=== PATIENT | male | born 1965 | race American Indian/Alaskan Native ===

== ENCOUNTER 2017-03-30 17:31 | Emergency (ER) | payer SELFPAY ==
[2017-03-30 18:14] LABS: Basophils % (Auto) 0.7 % (0.0-1.8); Eosinophils % (Auto) 3.3 % (0.0-4.3); Hematocrit 42.5 % (35.5-45.6); Hemoglobin 14.3 gm/dl (11.8-15.2); Mean Corpuscular HGB Conc 34 % (32-34); Mean Corpuscular Hemoglobin 34 pg (28-32); Mean Corpuscular Volume 100 fl (84-94); Platelet Count 266 K/mm3 (140-440); Red Blood Count 4.26 M/mm3 (3.65-5.03); Red Cell Distribution Width 14.4 % (13.2-15.2); White Blood Count 4.6 K/mm3 (4.5-11.0)
[2017-03-30 18:30] LABS: Anion Gap 16 mmol/L; Blood Urea Nitrogen 14 mg/dL (9-20); Calcium 8.5 mg/dL (8.4-10.2); Carbon Dioxide 25 mmol/L (22-30); Chloride 101.9 mmol/L (98-107); Glucose 96 mg/dL (75-100); Potassium 3.6 mmol/L (3.6-5.0); Sodium 139 mmol/L (137-145)
--- NOTE | 2017-03-31 09:04 | Emergency Department Report ---
ED General Adult HPI - General Chief complaint: Chest Pain Stated complaint: SYNCOPE/CHEST PAIN Time Seen by Provider: 03/31/17 08:53 Source: patient Mode of arrival: Ambulatory Limitations: No Limitations - History of Present Illness Initial comments: 51-year-old male presents to the emergency department complaining of chest pain and syncope. Patient states that one day ago he was having intermittent sharp pain in his chest. Yesterday afternoon, he stood up from a seated position and states everything went black. He states he woke up on the floor with numbness in his left arm. He also noted swelling in his left leg. He denies pain. He denies weakness in any of his extremities. There are no other complaints. -: Sudden, days(s) (1) Location: chest, left, upper extremity, lower extremity Radiation: non-radiation Severity scale (0 -10): 5 Quality: sharp Consistency: now resolved Improves with: none Worsens with: none Associated Symptoms: denies other symptoms Treatments Prior to Arrival: none - Related Data Previous Rx's Medication Instructions Recorded Last Taken Type Prednisone [predniSONE 5 mg (6-Day 5 mg PO .TAPER #1 tab.ds.pk 03/31/17 Unknown Rx Pack, 21 Tabs)] Allergies Allergy/AdvReac Type Severity Reaction Status Date / Time No Known Allergies Allergy Unverified 03/30/17 17:43 ED Review of Systems ROS: Stated complaint: SYNCOPE/CHEST PAIN Other details as noted in HPI Comment: All other systems reviewed and negative Cardiovascular: chest pain, edema, syncope Neurological: numbness ED Past Medical Hx - Past Medical History Previous Medical History?: No - Surgical History Past Surgical History?: Yes Additional Surgical History: R knee - Family History Family history: no significant - Social History Smoking Status: Current Every Day Smoker Substance Use Type: Alcohol - Medications Home Medications: Home Medications Medication Instructions Recorded Confirmed Last Taken Type Prednisone [predniSONE 5 mg (6-Day 5 mg PO .TAPER #1 tab.ds.pk 03/31/17 Unknown Rx Pack, 21 Tabs)] ED Physical Exam - General Limitations: No Limitations General appearance: alert, in no apparent distress - Head Head exam: Present: atraumatic, normocephalic - Eye Eye exam: Present: normal appearance, PERRL, EOMI - ENT ENT exam: Present: normal exam, normal orophraynx, mucous membranes moist - Neck Neck exam: Present: normal inspection, full ROM. Absent: tenderness - Respiratory Respiratory exam: Present: normal lung sounds bilaterally. Absent: respiratory distress - Cardiovascular Cardiovascular Exam: Present: regular rate, normal rhythm, normal heart sounds - GI/Abdominal GI/Abdominal exam: Present: soft, normal bowel sounds. Absent: distended, tenderness - Extremities Exam Extremities exam: Present: full ROM, other (edema noted to LLE without tenderness or erythema). Absent: tenderness - Back Exam Back exam: Present: normal inspection, full ROM. Absent: tenderness - Neurological Exam Neurological exam: Present: alert, oriented X3. Absent: motor sensory deficit - Skin Skin exam: Present: warm, dry, intact ED Course Vital Signs 03/30/17 03/31/17 03/31/17 17:44 05:21 10:04 Temperature 98.8 F 98.0 F Pulse Rate 80 68 69 Respiratory 16 20 16 Rate Blood Pressure 114/73 133/90 Blood Pressure 120/88 [Right] O2 Sat by Pulse 99 98 98 Oximetry 03/31/17 10:05 Temperature Pulse Rate Respiratory 16 Rate Blood Pressure Blood Pressure [Right] O2 Sat by Pulse 100 Oximetry ED Medical Decision Making - Lab Data Result diagrams: 03/30/17 17:56 03/30/17 17:56 - EKG Data -: EKG Interpreted by In EKG shows normal: sinus rhythm, axis, intervals, QRS complexes, ST-T waves Rate: normal - EKG Data When compared to previous EKG there are: previous EKG unavailable Interpretation: normal EKG - Radiology Data Radiology results: report reviewed CT of the head shows no acute intracranial abnormality. CT of the cervical spines shows spondylolysis without acute injury. - Medical Decision Making Lab and imaging results reviewed and discussed with the patient. Doppler ultrasound of the left lower history reveals a superficial venous thrombus in a calf vein. No indication for treatment at this time for this thrombosis. Patient is instructed to return to the emergency department in 1 week for repeat ultrasound of the leg. Patient will be discharged home at this time on steroids for cervical radiculopathy. - Differential Diagnosis syncope, atypical chest pain, DVT/PE, cervical radiculopathy, stroke Critical care attestation.: If time is entered above; I have spent that time in minutes in the direct care of this critically ill patient, excluding procedure time. ED Disposition Clinical Impression: Orthostatic syncope, Cervical radiculopathy Disposition: TO HOME OR SELFCARE Is pt being admited?: No Condition: Stable Instructions: Syncope (ED), Cervical Radiculopathy (ED) Additional Instructions: Return to the emergency department in one week for repeat ultrasound of your leg. Prescriptions: Prednisone [predniSONE 5 mg (6-Day Pack, 21 Tabs)] 5 mg PO .TAPER #1 tab.ds.pk Referrals: PRIMARY CARE, [Primary Care Provider] - 3-5 Days Time of Disposition: 10:44
[2017-03-31 10:04] VITALS: BP 120/88
--- NOTE | 2017-03-31 10:07 | Cat Scan Report ---
CT HEAD WITHOUT CONTRAST: HISTORY: Syncope. Serial contiguous axial images were obtained through the cranium. Intravenous contrast material was not administered. The ventricles are normal in size and appearance. There is no mass effect or midline shift. No areas of abnormally increased or decreased attenuation are seen. No mass lesion is seen. The mastoid air cells and visualized portions of the sinuses are normal. IMPRESSION: Cranial CT scan within normal limits.
--- NOTE | 2017-03-31 10:07 | Cat Scan Report ---
CT SCAN OF THE CERVICAL SPINE: HISTORY: Left arm numbness, neck pain. TECHNIQUE: Contiguous 1.25 mm axial images of the cervical spine were obtained. Sagittal and coronal reformatted images. FINDINGS: There is normal height and alignment of the cervical vertebral bodies. No evidence for fracture, subluxation or bone lesion. At C3-4, there is moderate to severe posterior and bilateral uncovertebral spurring. Borderline central canal narrowing measuring 8-9 mm in AP dimension. Bilateral neural foraminal narrowing is estimated at 75%. At C5-6: Moderate right posterior and right uncovertebral spurring is identified resulting in high-grade right neural foraminal narrowing estimated at 75%. The remaining levels demonstrate mild degenerative findings. IMPRESSION: No acute injury is appreciated. Moderate to severe cervical spondylosis as outlined above.
--- NOTE | 2017-04-01 07:50 | Vascular Lab Report ---
Left Lower Extremity Venous Duplex Study: Reason for Exam: Swelling of the left lower extremity. Comments on the Right: A limited duplex study was done of the proximal veins of the right lower extremity. All veins visualized are freely compressible without evidence of internal echogenicity. Flow is spontaneous and phasic throughout. No evidence of acute or chronic thrombus is seen in any of the vessels visualized. Comments on the Left: All deep veins visualized are freely compressible without evidence of internal echogenicity. Flow is spontaneous and phasic throughout. No evidence of acute or chronic thrombus is seen in any of the vessels visualized. Superficial thrombophlebitis is noted in the lower portion of the greater saphenous vein Impression: No evidence of acute or chronic deep venous thrombosis in the left lower extremity. Superficial thrombophlebitis in the left lower extremity
== END 2017-03-31 10:45 | disposition home or self-care (01) ==
LOC: ED 17:31
DX: R55 Syncope and collapse (principal); M54.12 Radiculopathy, cervical region; F17.200 Nicotine dependence, unspecified, uncomplicated
CPT/HCPCS: 36415; 70450; 72125; 80048; 84484; 85025; 93005; 93010

== ENCOUNTER 2017-04-07 04:02 | Emergency (ER) | payer SELFPAY ==
[2017-04-07 05:07] VITALS: BP 129/87
--- NOTE | 2017-04-07 08:22 | Emergency Department Report ---
ED Lower Extremity HPI - General Chief Complaint: Extremity Problem,Nontraumatic Stated Complaint: FOLLOW UP Time Seen by Provider: 04/07/17 08:07 Source: patient Mode of arrival: Ambulatory Limitations: No Limitations - History of Present Illness Initial Comments: This is a 51-year-old male that presents to the ED for a repeat of ultrasound to the left lower leg. Patient stated he was here on and was seen by ED provider that was diagnosed with superficial venous thrombosis in the left calf vein. Patient was referred to return in 1 week to repeat ultrasound. Patient stated he is feeling much better since last week. Patient that he is only here today just to repeat ultrasound. Patient denies any calf tenderness, calf pain, fever, chills, short of breath, wheezing, hemoptysis, headache, chest pain. Denies any recent travels, recent hospitalization, or long car rides. Denies any allergies. Denies past medical history. MD Complaint: other (superficial venous thrombosis left lower extremity) -: Gradual, week(s) (1) Severity scale (0 -10): 0 Associated Symptoms: ambulatory. denies: snap/pop sensation, swelling, numbness , tingling, unable to bear weight, able to partially bear weight - Related Data Previous Rx's Medication Instructions Recorded Last Taken Type Prednisone [predniSONE 5 mg (6-Day 5 mg PO .TAPER #1 tab.ds.pk 03/31/17 Unknown Rx Pack, 21 Tabs)] Allergies Allergy/AdvReac Type Severity Reaction Status Date / Time No Known Allergies Allergy Unverified 03/30/17 17:43 ED Review of Systems ROS: Stated complaint: FOLLOW UP Other details as noted in HPI Constitutional: denies: chills, fever Eyes: denies: eye pain, eye discharge, vision change ENT: denies: ear pain, throat pain Respiratory: denies: cough, shortness of breath, wheezing Cardiovascular: denies: chest pain, palpitations Endocrine: no symptoms reported Gastrointestinal: denies: abdominal pain, nausea, diarrhea Genitourinary: denies: urgency, dysuria Musculoskeletal: denies: back pain, joint swelling, arthralgia Skin: denies: rash, lesions Neurological: denies: headache, weakness, paresthesias Psychiatric: denies: anxiety, depression Hematological/Lymphatic: denies: easy bleeding, easy bruising ED Past Medical Hx - Past Medical History Previous Medical History?: Yes Additional medical history: Left lower leg thrombus - Surgical History Past Surgical History?: Yes Additional Surgical History: R knee - Social History Smoking Status: Never Smoker Substance Use Type: None - Medications Home Medications: Home Medications Medication Instructions Recorded Confirmed Last Taken Type Prednisone [predniSONE 5 mg (6-Day 5 mg PO .TAPER #1 tab.ds.pk 03/31/17 Unknown Rx Pack, 21 Tabs)] ED Physical Exam - General Limitations: No Limitations General appearance: alert, in no apparent distress - Head Head exam: Present: atraumatic, normocephalic, normal inspection - Eye Eye exam: Present: normal appearance, PERRL, EOMI. Absent: scleral icterus, conjunctival injection, nystagmus, periorbital swelling, periorbital tenderness Pupils: Present: normal accommodation - ENT ENT exam: Present: normal exam, normal orophraynx, mucous membranes moist, TM's normal bilaterally, normal external ear exam - Neck Neck exam: Present: normal inspection, full ROM. Absent: tenderness, meningismus, lymphadenopathy, thyromegaly - Respiratory Respiratory exam: Present: normal lung sounds bilaterally. Absent: respiratory distress, wheezes, rales, rhonchi, stridor, chest wall tenderness, accessory muscle use, decreased breath sounds, prolonged expiratory - Cardiovascular Cardiovascular Exam: Present: regular rate, normal rhythm, normal heart sounds. Absent: bradycardia, tachycardia, irregular rhythm, systolic murmur, diastolic murmur, rubs, gallop - GI/Abdominal GI/Abdominal exam: Present: soft, normal bowel sounds. Absent: distended, tenderness, guarding, rebound, rigid, diminished bowel sounds - Rectal Rectal exam: Present: deferred - Extremities Exam Extremities exam: Present: normal inspection, full ROM, normal capillary refill. Absent: tenderness, pedal edema, joint swelling, calf tenderness - Expanded Lower Extremity Exam Left Hip exam: Present: normal inspection, full ROM, external rotation, internal rotation, pelvic stability. Absent: tenderness, swelling, abrasion, laceration , ecchymosis, deformity, crepidus, dislocation, erythema, shortening Upper Leg exam: Present: normal inspection, full ROM. Absent: tenderness, swelling, abrasion, laceration, ecchymosis, deformity, crepidus, dislocation, erythema Knee exam: Present: normal inspection, full ROM, full knee extension. Absent: tenderness, swelling, abrasion, laceration, ecchymosis, deformity, crepidus, dislocation, erythema, effusion, pain w/ pronation/supination, posterior draw sign, pain/laxity with valgus, pain/laxity with varus Lower Leg exam: Present: normal inspection, full ROM, swelling (lateral distal knee with superfical thrombus noted). Absent: tenderness, abrasion, laceration , ecchymosis, deformity, crepidus, dislocation, erythema, palpable cord, Zeus' s sign Ankle exam: Present: normal inspection, full ROM. Absent: tenderness, swelling , abrasion, laceration, ecchymosis, deformity, crepidus, dislocation, erythema, anterior draw sign Foot/Toe exam: Present: normal inspection, full ROM. Absent: tenderness, swelling, abrasion, laceration, ecchymosis, deformity, crepidus, dislocation, erythema, amputation, puncture wound, foreign body, calcaneal tenderness, tenderness at base of 5th metatarsal, nail avulsion, subungual hematoma Neuro vascular tendon exam: Present: no vascular compromise. Absent: pulse deficit, abnormal cap refill, motor deficit, sensory deficit, extremity cold to touch, pallor, abnormal 2-point discrimination, decreased fine/light touch, foot drop, peroneal nerve deficit, significant pain with passive ROM of distal joint Gait: Positive: observed and normal - Back Exam Back exam: Present: normal inspection, full ROM. Absent: tenderness, CVA tenderness (R), CVA tenderness (L), muscle spasm, paraspinal tenderness, vertebral tenderness, rash noted - Neurological Exam Neurological exam: Present: alert, oriented X3, CN II-XII intact, normal gait, reflexes normal - Psychiatric Psychiatric exam: Present: normal affect, normal mood - Skin Skin exam: Present: warm, dry, intact, normal color. Absent: rash ED Course Vital Signs 04/07/17 05:01 Temperature 98.7 F Pulse Rate 64 Respiratory 18 Rate Blood Pressure 129/87 [Right] O2 Sat by Pulse 97 Oximetry - Reevaluation(s) Reevaluation #1: 04/07/17 09:53 Patient is able to speak in full sentences with no signs fo distress noted. ED Lower Extremity MDM - Medical Decision Making Ed course: This is a 51-year-old male that presents with a recheck US of left LLE 1- patient was examined by myself. A doppler vasular US of LLE has been obtained. US by tech states no signs of DVT. 2- patient was notified to follow up with her primary care doctor in 3-5 days or if symptoms such as calf tenderness, calf swelling, numbness, tingling, fever , chills, chest pain or shortness of breath return to emergency room as soon as possible. 3- At time time of discharge, the patient does not seem toxic or ill in appearance. No acute signs of distress noted. Patient agrees to discharge treatment plan of care. No further questions noted by the patient. Critical care attestation.: If time is entered above; I have spent that time in minutes in the direct care of this critically ill patient, excluding procedure time. ED Disposition Clinical Impression: History of Doppler ultrasound Disposition: - TO HOME OR SELFCARE Is pt being admited?: No Does the pt Need Aspirin: No Condition: Stable Instructions: Deep Venous Thrombosis (ED) Additional Instructions: follow up with your primary care doctor in 3-5 days or if symptoms such as calf tenderness, calf swelling, numbness, tingling, fever, chills, chest pain or shortness of breath return to emergency room as soon as possible. Referrals: PRIMARY MD ANITA [Primary Care Provider] - 3-5 Days BLAIR OTT MD [Staff Physician] - 3-5 Days [facility] [Outside] - 3-5 Days [facility] [Outside] - 3-5 Days Forms: Work/School Release Form(ED)
--- NOTE | 2017-04-08 08:29 | Vascular Lab Report ---
Left Lower Extremity Venous Duplex Study: Reason for Exam: Swelling of the left lower extremity. Comments on the Right: A limited duplex study was done of the proximal veins of the right lower extremity. All veins visualized are freely compressible without evidence of internal echogenicity. Flow is spontaneous and phasic throughout. No evidence of acute or chronic thrombus is seen in any of the vessels visualized. Comments on the Left: All veins visualized are freely compressible without evidence of internal echogenicity. Flow is spontaneous and phasic throughout. No evidence of acute or chronic thrombus is seen in any of the vessels visualized. Previous superficial thrombophlebitis not visualized. Impression: No evidence of acute or chronic deep venous thrombosis in the left lower extremity.
== END 2017-04-07 10:53 | disposition home or self-care (01) ==
LOC: ED 04:02
DX: I82.812 Embolism and thrombosis of superficial veins of left lower extremity (principal)

== ENCOUNTER 2021-05-07 00:53 | Emergency (ER) | payer OTHER ==
[2021-05-07 03:06] VITALS: BP 123/90
[2021-05-07] MEDS ORDERED: LIDOCAINE (2%) 20 MG/1 ML VIAL 20 ML MDV INFILTRATI STA (03:19)
--- NOTE | 2021-05-07 04:28 | Emergency Department Report ---
ED Laceration HPI - HPI Chief Complaint: Wound/Laceration Stated Complaint: LAC RT FINGER Time Seen by Provider: 05/07/21 03:18 Occurred When: Today Severity: mild Tetanus Status: Up to Date Laceration Symptoms: Yes Pain, No Foreign Body Sensation, No Numbness, No Weakne ss ED Review of Systems ROS: Stated complaint: LAC RT FINGER Other details as noted in HPI Comment: All other systems reviewed and negative ED Past Medical Hx - Past Medical History Previous Medical History?: Yes Additional medical history: Left lower leg thrombus - Surgical History Past Surgical History?: Yes Additional Surgical History: R knee - Social History Smoking Status: Current Every Day Smoker Substance Use Type: None - Medications Home Medications: Home Medications Medication Instructions Recorded Confirmed Last Taken Type Prednisone [predniSONE 5 mg (6-Day 5 mg PO .TAPER #1 tab.ds.pk 03/31/17 Unknown Rx Pack, 21 Tabs)] Acetaminophen/Codeine [Tylenol #3] 1 tab PO Q6H PRN #15 tab 05/07/21 Unknown Rx Chlorhexidine Gluconate [Hibiclens] 10 ml TP BID PRN #240 liquid 05/07/21 Unknown Rx Laceration Physical Exam - Exam General: Vital signs noted. No distress. Alert and acting appropriately. Wound Length (cm): 3 Laceration Location: Upper Extremity Full Body Front + Back: 1 - Index finger laceration Laceration Exam: Yes Normal Distal CMS, No Foreign Body, No Exposed Tendon, Vessel, or Nerve, No Tendon Injury ED Course Vital Signs 05/07/21 05/07/21 02:57 03:11 Temperature 98.7 F Pulse Rate 65 Respiratory 18 Rate Blood Pressure 123/90 O2 Sat by Pulse 98 99 Oximetry - Laceration /Wound Repair Right Finger Wound Location: upper extremity Wound Length (cm): 3 Wound's Depth, Shape: irregular Irrigated w/ Saline (ccs): 100 Betadine Prep?: Yes Anesthesia: 1% Lidocaine Volume Anesthetic (ccs): 2 Wound Repaired With: sutures Suture Size/Type: 4:0, proline Number of Sutures: 7 Critical care attestation.: If time is entered above; I have spent that time in minutes in the direct care of this critically ill patient, excluding procedure time. ED Disposition Clinical Impression: Finger laceration Disposition: HOME / SELF CARE / HOMELESS Is pt being admited?: No Does the pt Need Aspirin: No Condition: Stable Instructions: Laceration Care, Adult, Sutures, [place], or Adhesive Wound Closure, [id number] Additional Instructions: Follow-up in 7 to 10 days ago for evaluation possible suture removal Prescriptions: Chlorhexidine Gluconate [Hibiclens] 10 ml TP BID PRN #240 liquid PRN Reason: Pain , Severe (7-10) Acetaminophen/Codeine [Tylenol #3] 1 tab PO Q6H PRN #15 tab PRN Reason: Pain Referrals: [facility] [Provider Group] - 3-5 Days
== END 2021-05-07 04:40 | disposition home or self-care (01) ==
LOC: ED 00:53
DX: S61.210A Laceration without foreign body of right index finger without damage to nail, initial encounter (principal); F17.200 Nicotine dependence, unspecified, uncomplicated; Z98.890 Other specified postprocedural states; Z79.899 Other long term (current) drug therapy; X58.XXXA Exposure to other specified factors, initial encounter; Y93.89 Activity, other specified; Y92.89 Other specified places as the place of occurrence of the external cause; Y99.8 Other external cause status

== ENCOUNTER 2021-05-23 14:57 | Emergency (ER) | payer SELFPAY ==
--- NOTE | 2021-05-23 15:36 | Emergency Department Report ---
Suture/Staple Removal - HPI Stated Complaint: STITCH REMOVAL (R)HAND Time Seen by Provider: 05/23/21 15:34 When Sutures or Sandy Placed: 11-14 Days Ago Wound Location: FINGER ED Review of Systems ROS: Stated complaint: STITCH REMOVAL (R)HAND Other details as noted in HPI Comment: All other systems reviewed and negative ED Past Medical Hx - Past Medical History Previous Medical History?: Yes Additional medical history: Left lower leg thrombus - Surgical History Past Surgical History?: Yes Additional Surgical History: R knee - Family History Family history: no significant - Social History Smoking Status: Current Every Day Smoker Substance Use Type: None - Medications Home Medications: Home Medications Medication Instructions Recorded Confirmed Last Taken Type Prednisone [predniSONE 5 mg (6-Day 5 mg PO .TAPER #1 tab.ds.pk 03/31/17 Unknown Rx Pack, 21 Tabs)] Acetaminophen/Codeine [Tylenol #3] 1 tab PO Q6H PRN #15 tab 05/07/21 Unknown Rx Chlorhexidine Gluconate [Hibiclens] 10 ml TP BID PRN #240 liquid 05/07/21 Unknown Rx Suture Removal Exam - Exam General: Vital signs noted. No distress. Alert and acting appropriately. Wound: Yes Tenderness, No Pathologic Erythema, No Drainage, No Pus, No Wound Dehiscence Other Systems: All other systems reviewed and are unremarkable. ED Recheck MDM - Core Measures Measure Exclusions: not indicated - Differential Diagnosis Suture/Staple Removal - Medical Decision Making SUTURES REMOVED WITHOUT DIFFICULTY WOUND CLEANED AND DRESSED DC HOME WITH DC PLAN OF CARE INCLUDING WOUND CARE. PT VERBALIZES UNDERSTANDING OF PLAN OF CARE Critical care attestation.: If time is entered above; I have spent that time in minutes in the direct care of this critically ill patient, excluding procedure time. ED Disposition Clinical Impression: Visit for suture removal Disposition: 01 HOME / SELF CARE / HOMELESS Is pt being admited?: No Does the pt Need Aspirin: No Condition: Stable Instructions: Wound Closure Removal, Care After Additional Instructions: KEEP WOUND CLEAN AND DRY MOTRIN OR TYLENOL FOR PAIN FOLLOW UP WITH PCP NEXT WEEK FOR RECHECK REFERRAL BELOW Referrals: JASPER TAN MD [Staff Physician] - 3-5 Days Time of Disposition: 15:35
== END 2021-05-23 16:14 | disposition home or self-care (01) ==
LOC: ED 14:57
DX: S61.411D Laceration without foreign body of right hand, subsequent encounter (principal); F17.200 Nicotine dependence, unspecified, uncomplicated; Z98.890 Other specified postprocedural states; X58.XXXD Exposure to other specified factors, subsequent encounter
CPT/HCPCS: 99282